=== PATIENT | female | born 2000 | race Caucasian/White ===

== ENCOUNTER 2021-06-19 07:57 | Emergency (ER) | payer BC ==
[2021-06-19 08:50] LABS: HEMOGLOBIN 13.2 gm/dl (12.3-15.3); RED BLOOD COUNT 4.23 M/UL (4.00-5.10); WHITE BLOOD COUNT 5.6 K/UL (4.5-11.0)
[2021-06-19 09:10] LABS: BUN/CREATININE RATIO 10 (0-10)
[2021-06-19] MEDS ORDERED: IBUPROFEN800 MG PO (13:00)
[2021-06-19] MEDS ORDERED: CYCLOBENZAPRINE10 MG PO (13:00)
== END 2021-06-19 13:08 | disposition home or self-care (01) ==
LOC: ER1 07:57
PROVIDERS: Physician Assistant
DX: N83.201 Unspecified ovarian cyst, right side (principal); N83.202 Unspecified ovarian cyst, left side; Z90.49 Acquired absence of other specified parts of digestive tract
CPT/HCPCS: 76830; 80053; 81001; 84703; 85025; 87086; 96374; 96375; 99284; J1885; J2405